=== PATIENT | male | born 1995 | race African-American/Black ===

== ENCOUNTER 2023-03-08 08:52 | Emergency (ER) | payer SELFPAY ==
[2023-03-08] MEDS ORDERED: Ondansetron 4 MG/2 ML SDV IVPUSH ONE (09:01)
[2023-03-08] MEDS ORDERED: Sodium Chloride 0.9% 1,000 ML IV ONE (09:01)
[2023-03-08] MEDS ORDERED: Ketorolac 30 MG/ML SDV IVPUSH ONE (09:01)
[2023-03-08 09:55] LABS: BASOPHILS ABSOLUTE AUTO 0.05 K/uL (0.00-0.20); BASOPHILS PERCENT AUTO 0.4 % (0.0-1.0); EOSINOPHILS ABSOLUTE AUTO 0.03 K/uL (0.00-0.45); EOSINOPHILS PERCENT AUTO 0.3 % (0.0-6.0); HEMATOCRIT 45.1 % (42.0-52.0); HEMOGLOBIN 15.9 g/dL (14.0-18.0); IMMATURE GRAN ABSOLUTE AUTO 0.03 K/uL (0.00-0.05); IMMATURE GRAN PERCENT AUTO 0.3 % (0.0-0.4); LYMPHOCYTES ABSOLUTE AUTO 1.38 K/uL (1.00-4.80); LYMPHOCYTES PERCENT AUTO 12.1 % (24.0-44.0); MEAN CORPUSCULAR HEMOGLOBIN 30.7 pg (28.0-32.0); MEAN CORPUSCULAR HGB CONC 35.3 g/dL (32.0-36.0); MEAN CORPUSCULAR VOLUME 87.1 fL (83.0-99.0); MEAN PLATELET VOLUME 9.3 fL (9.4-12.4); MONOCYTES ABSOLUTE AUTO 0.57 K/uL (0.00-0.80); NEUTROPHILS ABSOLUTE AUTO 9.4 K/uL (1.8-7.7); NEUTROPHILS PERCENT AUTO 81.9 % (41.0-71.0); PLATELET COUNT,PLT 328 K/uL (150-400); RED BLOOD CELL COUNT 5.18 M/uL (4.52-5.90); WHITE BLOOD CELL COUNT,WBC 11.45 K/uL (3.9-11.3)
[2023-03-08 10:19] LABS: A/G RATIO 1.1 (0.9-1.6); ALBUMIN 4.5 g/dL (3.4-5.0); BILIRUBIN TOTAL 0.7 mg/dL (0.2-1.0); CALCIUM 10.3 mg/dL (8.5-10.1); CARBON DIOXIDE,CO2 28.2 mmol/L (21.0-32.0); EST CRCL DRUG DOSING (CG) 105.58 mL/min; POTASSIUM,K 3.9 mmol/L (3.5-5.1); PROTEIN TOTAL,TP 8.5 g/dL (6.4-8.2)
== END 2023-03-08 11:07 | disposition home or self-care (01) ==
LOC: MW.ED 08:52
DX: K29.00 Acute gastritis without bleeding (principal)
CPT/HCPCS: 36415; 80053; 83690; 85025; 96361; 96374; 96375; 99284; J1885; J2405; J7030